=== PATIENT | female | born 1930 | race Caucasian/White ===

== ENCOUNTER 2017-11-22 23:15 | Emergency (ER) | payer MEDICARE ==
--- NOTE | 2017-11-22 23:31 | Emergency Department Record ---
History of Present Illness - General Chief complaint: Nausea, Vomiting, Diarrhea Stated complaint: NAUSEA AND "SHAKING" Time Seen by Provider: 11/22/17 23:16 Source: Patient Mode of Arrival: Ambulatory Limitations: No limitations - History of Present Illness Initial comments: 87 yo female presents to ED for evaluation of nausea and "shaking" that began approximately 3 hours ago. Patient denies cough or difficulty breathing, denies abdominal pain or urinary symptoms, and denies recent illness. Patient denies change in stools or recent rash. MD complaint: Nausea Onset/Timin -: Hour(s) Associated Abdominal Pain: No Severity: Moderate Quality: Constant Consistency: Constant Improves with: None Worsens with: None Associated Symptoms: Denies other symptoms - Related Data Home Medications Medication Instructions Recorded Confirmed Last Taken Amlodipine Besylate [Norvasc] 10 mg PO DAILY 11/22/17 11/22/17 Unknown Aspirin, Regular 325 mg PO DAILY 11/22/17 11/22/17 Unknown Potassium 99 mg PO DAILY 11/22/17 11/22/17 Unknown Vit C/Vit E AC/Lut/Copper/Zinc 1 tab PO DAILY 11/22/17 11/22/17 Unknown [PreserVision Lutein Softgel] Allergies Allergy/AdvReac Type Severity Reaction Status Date / Time azithromycin Allergy ALTERED Verified 11/22/17 23:20 MENTAL STATUS meperidine HCl [From Demerol] Allergy NAUSEA AND Verified 11/22/17 23:20 VOMITING methylprednisolone Allergy ALTERED Verified 11/22/17 23:20 MENTAL STATUS Sulfa (Sulfonamide Allergy SWELLING Verified 11/22/17 23:20 Antibiotics) (GENERAL) Travel Screening - Travel/Exposure Within Last 30 Days Have you traveled within the last 30 days?: No - Travel/Exposure Within Last Year Have you traveled outside the [place] in the last year?: No - Additonal Travel Details Have you been exposed to anyone with a communicable illness?: No - Travel Symptoms Symptom Screening: Fever (GT 100.4) Review of Systems Constitutional: Reports: Chills, Fever. Denies: Malaise, Night sweats Eyes: Denies: Eye discharge, Eye pain ENT: Denies: Congestion, Ear pain, Epistaxis Respiratory: Denies: Cough, Dyspnea Cardiovascular: Denies: Chest pain, Dyspnea on exertion Endocrine: Denies: Fatigue, Heat or cold intolerance Gastrointestinal: Reports: Nausea. Denies: Abdominal pain, Vomiting Genitourinary: Denies: Incontinence, Retention Musculoskeletal: Denies: Arthralgia, Back pain, Gout, Joint swelling Skin: Denies: Bruising, Change in color Neurological: Denies: Abnormal gait, Confusion, Headache, Seizure Psychiatric: Denies: Anxiety Hematological/Lymphatic: Denies: Anemia, Blood Clots Past Medical History - SOCIAL HISTORY Smoking Status: Never smoker Alcohol Use: None Drug Use: None - RESPIRATORY Hx Respiratory Disorders: No - CARDIOVASCULAR Hx Cardio Disorders: Yes Hx Deep Vein Thrombosis: Yes (1964) - NEURO Hx Neuro Disorders: No - GI Hx GI Disorders: Yes Hx Reflux: Yes - Hx Genitourinary Disorders: No - ENDOCRINE Hx Endocrine Disorders: Yes Hx Thyroid Disease: Yes - MUSCULOSKELETAL Hx Musculoskeletal Disorders: No - PSYCH Hx Psych Problems: No - HEMATOLOGY/ONCOLOGY Hx Hematology/Oncology Disorders: No Family Medical History Any Significant Family History?: No Hx Cancer: Brother/Sister Hx Diabetes: Brother/Sister Hx Stroke: Mother Physical Exam - General General Appearance: Alert, Oriented x3, Cooperative, Moderate distress Limitations: No limitations - Head Head exam: Atraumatic, Normocephalic, Normal inspection Head exam detail: negative: Abrasion, Contusion, Mejia's sign, General tenderness, Hematoma, Laceration - Eye Eye exam: Normal appearance. negative: Conjunctival injection, Periorbital swelling, Periorbital tenderness, Scleral icterus - ENT Ear exam: negative: Auricular hematoma, Auricular trauma Nasal Exam: negative: Active bleeding, Discharge, Dried blood, Foreign body Mouth exam: negative: Drooling, Laceration, Muffled voice, Tongue elevation - Neck Neck exam: Normal inspection. negative: Meningismus, Tenderness - Respiratory Respiratory exam: Normal lung sounds bilaterally. negative: Rales, Respiratory distress, Rhonchi, Stridor - Cardiovascular Cardiovascular Exam: Regular rate, Normal rhythm, Normal heart sounds - GI/Abdominal GI/Abdominal exam: Soft. negative: Rebound, Rigid, Tenderness - Rectal Rectal exam: Deferred - exam: Deferred - Extremities Extremities exam: Normal inspection. negative: Calf tenderness, Pedal edema, Tenderness - Back Back exam: Denies: CVA tenderness (R), CVA tenderness (L) - Neurological Neurological exam: Alert, Normal gait, Oriented X3 - Psychiatric Psychiatric exam: Normal affect, Normal mood - Skin Skin exam: Normal color. negative: Abrasion Type of lesion: negative: abrasion Course Vital Signs 11/22/17 23:21 Temperature 100.8 F H Pulse Rate 94 H Respiratory 20 Rate Blood Pressure 159/89 Pulse Ox 95 - Reevaluation(s) Reevaluation #1: 11/23/17 00:11 Labs reviewed, WBC 8.1 with 85% Neutrophils, 6% Bands. Labs are otherwise grossly unremarkable for an acute process. Reevaluation #2: 11/23/17 00:36 UA reviewed: RBCs: 3-6 WBCs: 3-5 Bacteria: Few Patient reports improvement in her symptoms, currently in CT for imaging of the abdomen and pelvis. Reevaluation #3: 11/23/17 01:45 CT Abdomen and Pelvis: No acute findings Diverticulosis without diverticulitis Patient was updated on all results, reports that she continues to feel well. No source for the patient's fever symptoms is identified at this time, culture drawn. Patient appears stable for discharge at this time with her daughter at the bedside with instructions for care of her fever and to return for any worsening of her symptoms. Patient and her daughter verbalize understanding of all instructions. Medical Decision Making - Lab Data Result diagrams: 11/22/17 23:30 11/22/17 23:30 Disposition Disposition: Discharge Clinical Impression: Rigors Fever Qualifiers: Fever type: unspecified Qualified Code(s): R50.9 - Fever, unspecified Disposition: Home, Self-Care Condition: (2) Stable Instructions: Fever in Adults (ED) Additional Instructions: Return to ED if your symptoms worsen or if you have any concerns. Tylenol and Ibuprofen as directed for fever. Follow-up with your family doctor in 1-3 days as directed. Forms: Patient Portal Access Time of Disposition: 01:48 Quality - Quality Measures Quality Measures: N/A - Blood Pressure Screening Does Patient Have Any of the Following: No Blood Pressure Classification: Pre-Hypertensive BP Reading Systolic Measurement: 159 Diastolic Measurement: 89 Screening for High Blood Pressure: < Pre-Hypertensive BP, F/U Documented > [ [id number]] Pre-Hypertensive Follow-up Interventions: Referral to alternative/primary care provider.
[2017-11-22] MEDS: 0.9 % SODIUM CHLORIDE 1000ML 1,000 ML IV SCH (23:35)
[2017-11-22] MEDS: ONDANSETRON HCL IV 4 MG/2 ML VIAL IVP ONE (23:35)
[2017-11-22] MEDS: ACETAMINOPHEN 500 MG TABLET PO ONE (23:51)
[2017-11-22 23:55] LABS: BLOOD UREA NITROGEN 22 mg/dL (8-23)
[2017-11-22 23:56] LABS: CREATININE 0.8 mg/dL (0.5-0.9); EST GLOMERULAR FILTRATION RATE > 60 mL/min; TOTAL PROTEIN 7.7 g/dL (6.6-8.7)
[2017-11-22 23:58] LABS: GLUCOSE,RANDOM 179 mg/dL (74-109); HEMATOCRIT 44.4 % (35.0-47.0); HEMOGLOBIN 14.3 gm/dl (11.6-16.0); MEAN CELL VOLUME 92.3 fl (81-97); MEAN CORPUSCULAR HEMOGLOBIN 29.7 pg (27-33); MEAN CORPUSCULAR HGB CONC 32.2 g/dl (32-36); MEAN PLATELET VOLUME 8.6 fl (7.4-10.4); PLATELET COUNT 263 K/uL (130-400); RED BLOOD COUNT 4.81 M/uL (3.80-5.40); RED CELL DISTRIBUTION WIDTH 13.5 % (11.5-14.5); WHITE BLOOD COUNT W/O DIFF 8.1 K/uL (4.2-12.2)
[2017-11-23 00:01] LABS: ALB/GLOB RATIO 1.4 (1.1-1.8); ALBUMIN 4.5 g/dL (4.0-5.0); ALKALINE PHOSPHATASE 91 U/L (35-104); ALT/SGPT 13 U/L (<33); AST/SGOT 18 U/L (10.0-35.0)
[2017-11-23 00:23] LABS: URINE APPEARANCE CLEAR; URINE BILIRUBIN NEGATIVE (NEGATIVE); URINE BLOOD TRACE-I (NEGATIVE); URINE COLOR YELLOW; URINE GLUCOSE (UA) NEGATIVE (NEGATIVE); URINE KETONE NEGATIVE (NEGATIVE); URINE LEUKOCYTE ESTERASE MODERATE (NEGATIVE); URINE NITRITE POSITIVE (NEGATIVE); URINE PROTEIN NEGATIVE (NEGATIVE); URINE UROBILINOGEN 0.2 E.U./dL (0.20 - 1.00)
[2017-11-23 00:30] LABS: URINE BACTERIA FEW; URINE SQUAMOUS EPITHELIAL CELL 0 - 2 /hpf
--- NOTE | 2017-11-23 22:20 | RADIOLOGY REPORT ---
EXAM: CHEST 2 VIEWS HISTORY: NAUSEA AND VOMITING. DIARRHEA. COMPARISON: 05/21/12. TECHNIQUE: Chest, two view. FINDINGS: The cardiomediastinal silhouette is stable. Aortic atherosclerosis. There is similar interstitial prominence within the lungs, likely related to scarring/fibrosis. No focal consolidation or pleural effusion. Lungs are hyperaeration suggesting emphysematous change/COPD. IMPRESSION: NO ACUTE PROCESS. PROBABLE COPD. JOB NUMBER: [id number] MTDD
--- NOTE | 2017-11-23 22:46 | CT SCAN REPORT ---
EXAM: CT SCAN ABDOMEN/PELVIS W CONTRAST HISTORY: ABDOMINAL PAIN. RIGHT LOWER QUADRANT PAIN. PREVIOUS APPENDECTOMY AND HYSTERECTOMY. TECHNIQUE: Routine CT images of the abdomen and pelvis obtained following intravenous contrast, amount and type of contrast in the medical record. FINDINGS: Mild bibasilar atelectasis. Liver, gallbladder, pancreas, and spleen are unremarkable. There is mild thickening of the adrenal glands. Kidneys enhance and excrete contrast normally. No renal or ureteral calculi or hydronephrosis. Mild to moderate hiatal hernia. There is moderate colonic diverticulosis without CT evidence of diverticulitis. Appendix surgically absent. Bowel normal in caliber. Bladder unremarkable. Uterus surgically absent. Aortic tortuosity without aneurysmal dilation. There is moderate scattered atherosclerosis. Mildly prominent periaortic retroperitoneal lymph nodes measuring 10-11 mm short axis diameter of questionable significance. No free air or free fluid. Abdominal wall soft tissues are unremarkable. No acute osseous abnormality. Bilateral L5 pars defects. Grade 1 anterolisthesis. Moderate lumbar spondylosis. IMPRESSION: 1. NO ACUTE PROCESS WITHIN THE ABDOMEN OR PELVIS. 2. COLONIC DIVERTICULOSIS WITHOUT CT EVIDENCE FOR DIVERTICULITIS. 3. MODERATE HIATAL HERNIA. 4. NONSPECIFIC MILDLY PROMINENT RETROPERITONEAL LYMPH NODES. 5. OTHER CHRONIC FINDINGS, ABOVE. JOB NUMBER: [id number] MTDD
== END 2017-11-23 02:05 | disposition home or self-care (01) ==
LOC: ER 23:15
DX: R50.9 Fever, unspecified (principal); R11.2 Nausea with vomiting, unspecified; R19.7 Diarrhea, unspecified; K57.90 Diverticulosis of intestine, part unspecified, without perforation or abscess without bleeding
CPT/HCPCS: 71046; 74177; 80053; 81001; 85025; 85027; 96361; 96374; 99284; J2405; J7030